=== PATIENT | female | born 1960 | race Caucasian/White ===

== ENCOUNTER 2016-04-13 16:39 | Emergency (ER) | payer BC, OTHER ==
[2016-04-13 16:44] VITALS: BP 129/68; PULSE 91; TEMP 98.1; BMI 23.6
[2016-04-13] MEDS ORDERED: NAPROXEN 500 MG TABLET (FP) PO ONE (16:52)
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
[2016-04-13] MEDS ORDERED: NAPROXEN 500 MG TABLET (FP) ONE (16:56)
== END 2016-04-13 17:10 | disposition home or self-care (01) ==
LOC: FER 16:39
DX: S13.4XXA Sprain of ligaments of cervical spine, initial encounter (principal); V43.52XA Car driver injured in collision with other type car in traffic accident, initial encounter; Y93.89 Activity, other specified; Y92.410 Unspecified street and highway as the place of occurrence of the external cause; F41.9 Anxiety disorder, unspecified
CPT/HCPCS: 99282-25